=== PATIENT | female | born 2000 | race American Indian/Alaskan Native ===

== ENCOUNTER 2020-07-12 15:56 | Emergency (ER) | payer SELFPAY ==
[2020-07-12 16:03] VITALS: BP 110/50
--- NOTE | 2020-07-12 16:05 | Event Note ---
ED Screening Note ED Screening Note: Patient is a 20-year-old -[place] female that comes to the ER today complaining of shortness of breath. She states that she went to [facility] but the wait was too long so she came here. She is tachypneic on exam but she is not hypoxic. She denies fever or chills. She endorses chest pain and shortness of breath. No known exposure to Covid but the patient admits that she is concerned that she has COVID-19. Patient has no underlying comorbid conditions. This initial assessment/diagnostic orders/clinical plan/treatment(s) is/are subject to change based on patients health status, clinical progression and re- assessment by fellow clinical providers in the ED. Further treatment and workup at subsequent clinical providers discretion. Patient/guardian urged not to elope from the ED as their condition may be serious if not clinically assessed and managed. Initial orders include: X-ray to rule out acute respiratory process.
--- NOTE | 2020-07-12 16:29 | XRay Report ---
CHEST 2 VIEWS INDICATION / CLINICAL INFORMATION: Shortness of breath COMPARISON: None available. FINDINGS: SUPPORT DEVICES: None. HEART / MEDIASTINUM: No significant abnormality. LUNGS / PLEURA: No significant pulmonary or pleural abnormality. No pneumothorax. ADDITIONAL FINDINGS: No significant additional findings. IMPRESSION: 1. No acute findings. Signer Name: Rivera Valera MD Signed: 07/12/2020 4:25 PM Workstation Name: [email or web address]
--- NOTE | 2020-07-12 16:40 | Emergency Department Report ---
Minor Respiratory - HPI Chief Complaint: Dyspnea/Respdistress Stated Complaint: CHEST PAIN/BODY ACHE Time Seen by Provider: 07/12/20 16:03 Duration: 5 Days Pain Location: Throat, Chest Severity: mild Minor Respiratory: Yes Rhinorrhea, Yes Able to Tolerate Fluids, No Sore Throat, No Ear Pain, No Cough, No Sick Contacts, No Hemoptysis, No Chest Pain, No Shortness of Breath, No Fever Other History: Patient is a 20-year-old -[place] female that comes to the ER today with cough. She is concerned that she has Covid. She has had no known exposures. She reports shortness of breath. She has no underlying medical problems. She has tachypneic on exam I think this is more anxiety and concern for Covid than pathological. She has no tachycardia or hypotension or fever. She is ambulatory nonill nontoxic. She is carrying her Bernal's back to the ER. ED Review of Systems ROS: Stated complaint: CHEST PAIN/BODY ACHE Other details as noted in HPI Comment: All other systems reviewed and negative ED Past Medical Hx - Past Medical History Previous Medical History?: No - Surgical History Past Surgical History?: No - Family History Family history: no significant - Social History Smoking Status: Never Smoker Substance Use Type: None - Medications Home Medications: Home Medications Medication Instructions Recorded Confirmed Last Taken Type Amoxicillin [Trimox CAP] 500 mg PO BID #20 capsule 07/12/20 Unknown Rx Minor Respiratory Exam - Exam General: Vital signs noted. No distress. Alert and acting appropriately. HEENT: Yes Moist Mucous Membranes, No Pharyngeal Erythema, No Pharyngeal Exudates, No Rhinorrhea, No Conjuctival Injection, No Frontal Tenderness, No Maxillary Tenderness Ear: Neither TM Bulge, Neither TM Erythema, Neither EAC Pain, Neither EAC Discharge Neck: Yes Supple, No Adenopathy Lungs: Yes Good Air Exchange, No Wheezes, No Ronchi, No Stridor, No Cough, No Labored Respirations, No Retractions, No Use of Accessory Muscles, No Other Abnormal Lung Sounds Heart: Yes Regular, No Murmur Abdomen: Yes Normal Bowel Sounds, No Tenderness, No Peritoneal Signs Skin: No Rash, No Edema Neurologic: Alert and oriented, no deficits. Musculoskeletal: Unremarkable. ED Course Vital Signs 07/12/20 16:03 Temperature 98.3 F Pulse Rate 82 Respiratory 18 Rate Blood Pressure 110/50 O2 Sat by Pulse 99 Oximetry ED Medical Decision Making - Radiology Data Radiology results: report reviewed, image reviewed - Medical Decision Making X-ray noted. Vital Signs 07/12/20 16:03 Temperature 98.3 F Pulse Rate 82 Respiratory 18 Rate Blood Pressure 110/50 O2 Sat by Pulse 99 Oximetry Patient being discharged home with discharge plan of care. She has been given amoxicillin for likely sinus infection. Patient has no hypotension, tachycardia or fever. Patient verbalizes understanding of discharge plan of care including follow-up, medications hydration activity etc. - Differential Diagnosis Rule out Covid pneumonia Critical care attestation.: If time is entered above; I have spent that time in minutes in the direct care of this critically ill patient, excluding procedure time. ED Disposition Clinical Impression: Upper respiratory infection Disposition: DC-01 TO HOME OR SELFCARE Is pt being admited?: No Does the pt Need Aspirin: No Condition: Stable Instructions: Viral Respiratory Infection, [id number] Additional Instructions: rest meds as ordered today follow up with pcp referral below stay well hydrated good hand hygiene wear mask Prescriptions: Amoxicillin [Trimox CAP] 500 mg PO BID #20 capsule Referrals: AUREA MILLER MD [Primary Care Provider] - 3-5 Days YOLA DUENAS MD [Staff Physician] - 3-5 Days Forms: Work/School Release Form(ED) Time of Disposition: 16:43
== END 2020-07-12 16:56 | disposition home or self-care (01) ==
LOC: ED 15:56
DX: J06.9 Acute upper respiratory infection, unspecified (principal); Z79.899 Other long term (current) drug therapy
CPT/HCPCS: 71046